=== PATIENT | male | born 1940 | race Caucasian/White ===

== ENCOUNTER 2016-04-27 06:14 | Emergency (ER) | payer OTHER ==
[~2016-04-27] VITALS: Ht 190.5 cm; Wt 81.6 kg
[~2016-04-27 06:14] MED LIST: AMOXICILLIN500 MG PO; ASPIRIN81 M1 PO; DARVOCET N 1001 TAB PO; DAYPRO600 M1 PO; LANTUS100 U/ML SC; LISINOPRIL2.5 MG PO; METOPROLOL SUCC25 M2 PO; MOTRIN800 MG PO; SIMVASTATIN80 MG PO; STARLIX60 M1 PO
[2016-04-27] MEDS ORDERED: KLOR-CON 1010 ME1 PO (06:29)
[2016-04-27] MEDS ORDERED: ALDACTONE25 M1 PO (06:32)
[2016-04-27] MEDS ORDERED: LASIX40 MG PO (06:33)
[2016-04-27] MEDS ORDERED: ENTRESTO 24 MG1 EACH PO (06:36)
[2016-04-27 06:45] LABS: BASO # 0.1 10*3/uL (0.0-0.1); EOS # 0.2 10*3/uL (0.0-0.4); EOS % 3.6 % (1.0-4.0); HEMATOCRIT 42.2 % (42.0-52.0); HEMOGLOBIN 14.2 g/dl (14.0-18.0); LYMPH # 1.2 10*3/uL (1.3-4.4); LYMPH % 24.3 % (27.0-41.0); MEAN CELL VOLUME 78.1 fl (80.0-94.0); MEAN CORPUSCULAR HGB 26.3 pg (27.0-31.0); MEAN CORPUSCULAR HGB CONC 33.6 g/dl (33.0-37.0); MEAN PLATELET VOLUME 9.7 fl (9.6-12.3); MONO # 0.4 10*3/uL (0.1-1.0); MONO % 7.5 % (3.0-9.0); NEUT % 63.4 % (47.0-73.0); PLATELET COUNT AUTOMATED 163 10*3/uL (130-400); RED CELL DISTRI WIDTH 13.3 % (0-14.5); WHITE BLOOD COUNT 4.8 10*3/uL (4.8-10.8)
[2016-04-27 07:07] LABS: BUN 17 mg/dl (7-24); CARBON DIOXIDE 34 mmol/L (21-32); CHLORIDE 101 mmol/L (98-107); EST GLOM FILT AFRICAN AMERICAN > 60 ml/min; GLUCOSE 189 mg/dL (65-99); POTASSIUM 3.2 mmol/L (3.5-5.1); SODIUM 141 mmol/L (136-145); TROPONIN I < 0.015 ng/ml (<0.5)
[2016-04-27] MEDS ORDERED: STARLIX60 M1 PO (07:38)
== END 2016-04-27 11:22 | disposition short-term general hospital (02) ==
LOC: ED 06:14
PROVIDERS: Emergency Medicine Emergency Medical Services
DX: G45.9 Transient cerebral ischemic attack, unspecified (principal); F17.200 Nicotine dependence, unspecified, uncomplicated; E11.9 Type 2 diabetes mellitus without complications; I25.2 Old myocardial infarction; Z98.890 Other specified postprocedural states; Z79.82 Long term (current) use of aspirin; Z85.828 Personal history of other malignant neoplasm of skin

== ENCOUNTER → 2016-10-16 | Outpatient (CLI) | payer OTHER ==
[~2016-10-16] MED LIST changes: +ALDACTONE25 M1 PO; +ENTRESTO 24 MG1 EACH PO; +KLOR-CON 1010 ME1 PO; +LASIX40 MG PO
== END | disposition home or self-care (01) ==
LOC: US 18:59
DX: R60.0 Localized edema (principal)

== ENCOUNTER → 2016-12-02 | Day surgery (SDC) | payer OTHER ==
[2016-12-01 09:23] VITALS: BP 132/70
[2016-12-01 10:51] LABS: ACT PARTIAL THROMBO TIME 26.9 SECONDS (20.8-31.5)
[~2016-12-02] VITALS: Ht 185.4 cm; Wt 82.6 kg
[~2016-12-02] MED LIST changes: +DOXYCYCLINE100 M3 PO; +LANTUS SOL100 UNIT/1 SC; -LANTUS100 U/ML SC; +PLAVIX75 M1 PO; +WALKER
--- NOTE | ~2016-12-02 | O ---
[place], [place] OPERATIVE NOTE NAME: ADEEL KNOTT UNIT #: [id number] ROOM: DOCTOR: ANISH COASIO DPM BIRTHDATE: [birth year] DOS: 12/02/2016 PREOPERATIVE DIAGNOSIS: Gangrene, first right toe. POSTOPERATIVE DIAGNOSIS: Gangrene, first right toe. PROCEDURE: Amputation of the right hallux at the first right MPJ. SURGEON: Anish Ocasio DPM CITY EDITOR: None. ANESTHESIA: LMAC. TOURNIQUET: None. SPECIMEN: Right hallux. PROCEDURE IN DETAILS: The patient was brought to the operating room, placed on the operating table in supine position. Anesthesia was administered per Anesthesia Department. Local infiltration of 10 mL of 0.5% Marcaine plain was utilized for local block at the first right MPJ. The right hallux was noted to be gangrenous and necrotic. There were no signs of purulent drainage or localized infection. A 15 blade was utilized to perform an incision proximal to the gangrenous tissue. The incision was deepened via sharp and blunt dissection avoiding neurovascular structures in the area and the right hallux was amputated and disarticulated at the first right MPJ. Bleeding was noted to be within normal limits and there were no signs of purulent drainage or foul odor. No signs of abscess. The area was flushed with sterile saline. The deep tissues were approximated with 4-0 Vicryl in simple interrupted stitch manner. The skin was reapproximated with 3-0 nylon in simple interrupted stitch manner. The incision site showed no signs of blanching or complication. The incision was well coapted after closure. Sterile compressive dressing consisting of Xeroform, 4 x 4s, Kerlix and Karl bandage was applied. The patient tolerated the procedure and anesthesia well and left the OR with vital signs stable and neurovascular status intact. The patient will continue with a walker and surgical shoe. Will continue antibiotics. The patient will be discharged from the medical facility after clearance by anesthesia and reappoint at the office for dressing change. [place], [place] OPERATIVE NOTE NAME: ADEEL KNOTT UNIT #: [id number] ROOM: DOCTOR: ANISH OCASIO DPM BIRTHDATE: [birth year] ANISH OCASIO DPM CM:BRYANORD:OPERATIVE NOTE [phone] ANISH OCASIO DPM 12/05/16 0830 interface
[2016-12-02 11:00] VITALS: BP 116/74
[2016-12-02 12:23] VITALS: BP 97/53
[2016-12-02 12:38] VITALS: BP 117/65
[2016-12-02 12:53] VITALS: BP 122/69
== END | disposition home or self-care (01) ==
LOC: SDC 12-01 09:30
PROVIDERS: Podiatrist
DX: E10.52 Type 1 diabetes mellitus with diabetic peripheral angiopathy with gangrene (principal); I10 Essential (primary) hypertension; I25.10 Atherosclerotic heart disease of native coronary artery without angina pectoris; I25.2 Old myocardial infarction; E78.5 Hyperlipidemia, unspecified; I73.9 Peripheral vascular disease, unspecified; Z79.4 Long term (current) use of insulin; Z98.890 Other specified postprocedural states; Z89.412 Acquired absence of left great toe; Z87.891 Personal history of nicotine dependence; Z79.899 Other long term (current) drug therapy; Z82.49 Family history of ischemic heart disease and other diseases of the circulatory system; Z91.018 Allergy to other foods; Z86.73 Personal history of transient ischemic attack (TIA), and cerebral infarction without residual deficits

== ENCOUNTER → 2017-05-13 | Day surgery (SDC) | payer OTHER ==
[~2017-05-13] VITALS: Ht 182.8 cm; Wt 82.6 kg
[~2017-05-13] MED LIST changes: +LEVEMIR100 UNIT/1 SC
--- NOTE | ~2017-05-13 | O ---
[place], [place] OPERATIVE NOTE [id number] UNIT #: [id number] ROOM: DOCTOR: SILVANA WERNER MD BIRTHDATE: [birth year] DOS: 05/13/2017 PREOPERATIVE DIAGNOSIS: Cataract, left eye. POSTOPERATIVE DIAGNOSIS: Cataract, left eye. OPERATION: Extracapsular cataract extraction by phacoemulsification with posterior chamber intraocular lens implantation, left eye. ANESTHESIA: Monitored standby. OPERATIVE FINDINGS AND PROCEDURE: 2% Xylocaine topical anesthetic gel was applied to the eye in the preop area. The patient was taken to the operating room and prepped and draped in the standard fashion for sterile intraocular surgery. A time out procedure was performed verifying correct patient, correct site and corrects lens with Thu Werner MD. The operating microscope was swung into position and the lid speculum was inserted. Using a Lynette paracentesis blade, a paracentesis was made through clear cornea. Viscoelastic was used to fill the anterior chamber. Using a metal keratome a 2.4 mm self-sealing clear corneal cataract incision was made temporally at the limbus. Using a pre-bent 25 gauge cystotome needle, a standard continuous curvilinear capsulorrhexis was performed. The anterior capsule was removed with forceps. The lens nucleus was hydrodissected and phacoemulsified in the posterior chamber. Cortical material was removed with the irrigation aspiration hand piece and the posterior capsule was then polished with a curet under irrigation. The posterior chamber and capsular bag were filled with viscoelastic. A posterior chamber intraocular lens manufactured by: Ar, Model #[id number], and 19.0 diopters in strength were then inserted into the posterior chamber and within the capsular bag using the lens cartridge and injector system. Viscoelastic was removed using the irrigation aspiration handpiece. The anterior chamber was filled with balanced salt solution through the paracentesis. Both the paracentesis site and cataract incisions were hydrated with BSS and verified to be water-tight and self-sealing. Cefuroxime 1 mg/0.1 mL was injected into the anterior chamber through the paracentesis site. The incision checked to be water-tight using a Weck-Floridalma sponge. The integrity of the cataract wound and ocular tension were checked. Lid speculum and drapes were removed. The patient was transferred from the operating room to the recovery room in satisfactory condition. [place], [place] OPERATIVE NOTE NAME: ADEEL KNOTT Billy UNIT #: [id number] ROOM: DOCTOR: SILVANA WERNER MD BIRTHDATE: [birth year] SILVANA WERNER MD CM:OPRECORD:OPERATIVE NOTE [phone] SILVANA WERNER MD 05/13/17 0903 interface
[2017-05-13 07:20] VITALS: BP 136/75
[2017-05-13 08:50] VITALS: BP 128/65
[2017-05-13 09:05] VITALS: BP 120/57
[2017-05-13 09:20] VITALS: BP 132/68
== END ==
LOC: SDC 05-08 08:45
DX: E11.36 Type 2 diabetes mellitus with diabetic cataract (principal); Z86.73 Personal history of transient ischemic attack (TIA), and cerebral infarction without residual deficits; E78.00 Pure hypercholesterolemia, unspecified; I10 Essential (primary) hypertension; I25.10 Atherosclerotic heart disease of native coronary artery without angina pectoris; I25.2 Old myocardial infarction; Z83.3 Family history of diabetes mellitus; Z87.891 Personal history of nicotine dependence

== ENCOUNTER → 2017-06-10 | Day surgery (SDC) | payer OTHER ==
[~2017-06-10] VITALS: Ht 182.8 cm; Wt 82.6 kg
--- NOTE | ~2017-06-10 | O ---
[place], [place] OPERATIVE NOTE [id number] UNIT #: [id number] ROOM: DOCTOR: SILVANA WERNER MD BIRTHDATE: [birth year] DOS: 06/10/2017 PREOPERATIVE DIAGNOSIS: Cataract, right eye. POSTOPERATIVE DIAGNOSIS: Cataract, right eye. OPERATION: Extracapsular cataract extraction by phacoemulsification with posterior chamber intraocular lens implantation, right eye. ANESTHESIA: Monitored standby. OPERATIVE FINDINGS AND PROCEDURE: 2% Xylocaine topical anesthetic gel was applied to the eye in the preop area. The patient was taken to the operating room and prepped and draped in the standard fashion for sterile intraocular surgery. A time out procedure was performed verifying correct patient, correct site and corrects lens with Thu Werner M.D. The operating microscope was swung into position and the lid speculum was inserted. Using a Lynette paracentesis blade, a paracentesis was made through clear cornea. Viscoelastic was used to fill the anterior chamber. Using a metal keratome a 2.4 mm self-sealing clear corneal cataract incision was made temporally at the limbus. Using a pre-bent 25 gauge cystotome needle, a standard continuous curvilinear capsulorrhexis was performed. The anterior capsule was removed with forceps. The lens nucleus was hydrodissected and phacoemulsified in the posterior chamber. Cortical material was removed with the irrigation aspiration hand piece and the posterior capsule was then polished with a curet under irrigation. The posterior chamber and capsular bag were filled with viscoelastic. A posterior chamber intraocular lens manufactured by: Ar, Model #[id number], and 19.5 diopters in strength were then inserted into the posterior chamber and within the capsular bag using the lens cartridge and injector system. Viscoelastic was removed using the irrigation aspiration handpiece. The anterior chamber was filled with balanced salt solution through the paracentesis. Both the paracentesis site and cataract incisions were hydrated with BSS and verified to be water-tight and self-sealing. Cefuroxime 1 mg/0.1 mL was injected into the anterior chamber through the paracentesis site. The incision checked to be water-tight using a Weck-Floridalma sponge. The integrity of the cataract wound and ocular tension were checked. Lid speculum and drapes were removed. The patient was transferred from the operating room to the recovery room in satisfactory condition. [place], [place] OPERATIVE NOTE NAME: ADEEL KNOTT Billy UNIT #: [id number] ROOM: DOCTOR: SILVANA WERNER MD BIRTHDATE: [birth year] SILVANA WERNER MD CM:OPRECORD:OPERATIVE NOTE [phone] SILVANA WERNER MD 06/10/17 0850 interface
[2017-06-10 06:40] VITALS: BP 111/64
[2017-06-10 07:56] VITALS: BP 118/66
[2017-06-10 08:09] VITALS: BP 127/64
[2017-06-10 08:22] VITALS: BP 119/68
== END | disposition home or self-care (01) ==
LOC: SDC 06-05 09:30
DX: E11.36 Type 2 diabetes mellitus with diabetic cataract (principal); H25.811 Combined forms of age-related cataract, right eye; I25.2 Old myocardial infarction; I25.10 Atherosclerotic heart disease of native coronary artery without angina pectoris; Z87.891 Personal history of nicotine dependence; Z98.890 Other specified postprocedural states; Z79.899 Other long term (current) drug therapy; Z86.73 Personal history of transient ischemic attack (TIA), and cerebral infarction without residual deficits; I10 Essential (primary) hypertension; Z83.3 Family history of diabetes mellitus

== ENCOUNTER → 2018-01-07 | Outpatient (CLI) | payer OTHER ==
[~2018-01-07] MED LIST changes: +APRESOLINE10 MG PO; +CEPHALEXIN500 M1 PO; +COZAAR50 M1 PO; +FUROSEMIDE40 MG PO; +KLOR-CON M2020 ME1 PO; +NATURE'S BLEND F1 MG PO; +SILVADENE,SSD C50 GM PO; +VITAMIN D5000 UNI1 PO
== END ==
LOC: WOUNDCARE 06:59
DX: T24.231A Burn of second degree of right lower leg, initial encounter (principal); T24.232A Burn of second degree of left lower leg, initial encounter; T31.0 Burns involving less than 10% of body surface; I25.2 Old myocardial infarction; E11.9 Type 2 diabetes mellitus without complications; Z86.73 Personal history of transient ischemic attack (TIA), and cerebral infarction without residual deficits; Z85.828 Personal history of other malignant neoplasm of skin; X08.8XXA Exposure to other specified smoke, fire and flames, initial encounter; Y93.89 Activity, other specified; Y92.89 Other specified places as the place of occurrence of the external cause; Y99.8 Other external cause status

== ENCOUNTER → 2018-01-13 | Outpatient (CLI) | payer OTHER | END | disposition home or self-care (01) | LOC: WOUNDCARE 01:31 | DX: T24.221D Burn of second degree of right knee, subsequent encounter (principal); T24.222D Burn of second degree of left knee, subsequent encounter; T31.0 Burns involving less than 10% of body surface; E11.9 Type 2 diabetes mellitus without complications; I25.2 Old myocardial infarction; Z85.828 Personal history of other malignant neoplasm of skin; Z86.73 Personal history of transient ischemic attack (TIA), and cerebral infarction without residual deficits; X08.8XXD Exposure to other specified smoke, fire and flames, subsequent encounter ==

== ENCOUNTER → 2018-01-20 | Outpatient (CLI) | payer OTHER | END | disposition home or self-care (01) | LOC: WOUNDCARE 04:26 | DX: T24.222D Burn of second degree of left knee, subsequent encounter (principal); T24.221D Burn of second degree of right knee, subsequent encounter; T31.0 Burns involving less than 10% of body surface; E11.9 Type 2 diabetes mellitus without complications; I25.2 Old myocardial infarction; Z85.828 Personal history of other malignant neoplasm of skin; Z86.73 Personal history of transient ischemic attack (TIA), and cerebral infarction without residual deficits; X08.8XXD Exposure to other specified smoke, fire and flames, subsequent encounter ==

== ENCOUNTER → 2018-01-27 | Outpatient (CLI) | payer OTHER | END | disposition home or self-care (01) | LOC: RESCLI 01:13 | DX: T24.221D Burn of second degree of right knee, subsequent encounter (principal); T24.222D Burn of second degree of left knee, subsequent encounter; T31.0 Burns involving less than 10% of body surface; E11.9 Type 2 diabetes mellitus without complications; I25.2 Old myocardial infarction; Z85.828 Personal history of other malignant neoplasm of skin; Z86.73 Personal history of transient ischemic attack (TIA), and cerebral infarction without residual deficits; X08.8XXD Exposure to other specified smoke, fire and flames, subsequent encounter ==

== ENCOUNTER → 2018-02-03 | Outpatient (CLI) | payer OTHER | END | disposition home or self-care (01) | LOC: WOUNDCARE 04:31 | DX: T24.221D Burn of second degree of right knee, subsequent encounter (principal); T24.222D Burn of second degree of left knee, subsequent encounter; T31.0 Burns involving less than 10% of body surface; E11.9 Type 2 diabetes mellitus without complications; I25.2 Old myocardial infarction; Z86.73 Personal history of transient ischemic attack (TIA), and cerebral infarction without residual deficits; Z85.828 Personal history of other malignant neoplasm of skin; X58.XXXD Exposure to other specified factors, subsequent encounter ==

== ENCOUNTER → 2018-02-10 | Outpatient (CLI) | payer OTHER | END | disposition home or self-care (01) | LOC: WOUNDCARE 01:49 | DX: T24.231D Burn of second degree of right lower leg, subsequent encounter (principal); T24.232D Burn of second degree of left lower leg, subsequent encounter; T31.0 Burns involving less than 10% of body surface; E11.9 Type 2 diabetes mellitus without complications; I25.2 Old myocardial infarction; Z85.820 Personal history of malignant melanoma of skin; X08.8XXD Exposure to other specified smoke, fire and flames, subsequent encounter ==

== ENCOUNTER → 2018-02-24 | Outpatient (CLI) | payer OTHER | END | disposition home or self-care (01) | LOC: WOUNDCARE 03:00 | DX: T24.231D Burn of second degree of right lower leg, subsequent encounter (principal); T24.232D Burn of second degree of left lower leg, subsequent encounter; T31.0 Burns involving less than 10% of body surface; E11.9 Type 2 diabetes mellitus without complications; I25.2 Old myocardial infarction; Z86.73 Personal history of transient ischemic attack (TIA), and cerebral infarction without residual deficits; Z85.828 Personal history of other malignant neoplasm of skin; X08.8XXD Exposure to other specified smoke, fire and flames, subsequent encounter ==

== ENCOUNTER → 2018-03-03 | Outpatient (CLI) | payer OTHER | END | disposition home or self-care (01) | LOC: WOUNDCARE 04:43 | DX: E11.622 Type 2 diabetes mellitus with other skin ulcer (principal); L97.212 Non-pressure chronic ulcer of right calf with fat layer exposed; L97.222 Non-pressure chronic ulcer of left calf with fat layer exposed; I25.2 Old myocardial infarction; Z85.828 Personal history of other malignant neoplasm of skin; Z86.73 Personal history of transient ischemic attack (TIA), and cerebral infarction without residual deficits ==

== ENCOUNTER → 2018-03-10 | Outpatient (CLI) | payer OTHER | END | disposition home or self-care (01) | LOC: WOUNDCARE 02:20 | DX: T24.231D Burn of second degree of right lower leg, subsequent encounter (principal); T24.232D Burn of second degree of left lower leg, subsequent encounter; T31.0 Burns involving less than 10% of body surface; E11.622 Type 2 diabetes mellitus with other skin ulcer; L97.212 Non-pressure chronic ulcer of right calf with fat layer exposed; L97.222 Non-pressure chronic ulcer of left calf with fat layer exposed; X08.8XXD Exposure to other specified smoke, fire and flames, subsequent encounter ==

== ENCOUNTER → 2018-03-17 | Outpatient (CLI) | payer OTHER | END | disposition home or self-care (01) | LOC: WOUNDCARE 02:29 | DX: T24.231D Burn of second degree of right lower leg, subsequent encounter (principal); T24.232D Burn of second degree of left lower leg, subsequent encounter; T31.0 Burns involving less than 10% of body surface; E11.622 Type 2 diabetes mellitus with other skin ulcer; L97.212 Non-pressure chronic ulcer of right calf with fat layer exposed; L97.222 Non-pressure chronic ulcer of left calf with fat layer exposed; I25.2 Old myocardial infarction; Z85.828 Personal history of other malignant neoplasm of skin; Z86.73 Personal history of transient ischemic attack (TIA), and cerebral infarction without residual deficits; X08.8XXD Exposure to other specified smoke, fire and flames, subsequent encounter ==

== ENCOUNTER → 2018-03-24 | Outpatient (CLI) | payer OTHER | END | disposition home or self-care (01) | LOC: WOUNDCARE 02:25 | DX: E11.622 Type 2 diabetes mellitus with other skin ulcer (principal); L97.212 Non-pressure chronic ulcer of right calf with fat layer exposed; L97.222 Non-pressure chronic ulcer of left calf with fat layer exposed; I25.2 Old myocardial infarction; Z86.73 Personal history of transient ischemic attack (TIA), and cerebral infarction without residual deficits; Z85.828 Personal history of other malignant neoplasm of skin ==

== ENCOUNTER → 2018-04-07 | Outpatient (CLI) | payer OTHER | END | disposition home or self-care (01) | LOC: WOUNDCARE 01:44 | DX: T24.231D Burn of second degree of right lower leg, subsequent encounter (principal); T24.232D Burn of second degree of left lower leg, subsequent encounter; T31.0 Burns involving less than 10% of body surface; E11.622 Type 2 diabetes mellitus with other skin ulcer; L97.212 Non-pressure chronic ulcer of right calf with fat layer exposed; L97.222 Non-pressure chronic ulcer of left calf with fat layer exposed; I25.2 Old myocardial infarction; Z86.73 Personal history of transient ischemic attack (TIA), and cerebral infarction without residual deficits; X08.8XXD Exposure to other specified smoke, fire and flames, subsequent encounter ==

== ENCOUNTER → 2018-04-14 | Outpatient (CLI) | payer OTHER | END | disposition home or self-care (01) | LOC: WOUNDCARE 05:02 | DX: T24.231D Burn of second degree of right lower leg, subsequent encounter (principal); T24.232D Burn of second degree of left lower leg, subsequent encounter; T31.0 Burns involving less than 10% of body surface; E11.622 Type 2 diabetes mellitus with other skin ulcer; L97.212 Non-pressure chronic ulcer of right calf with fat layer exposed; L97.222 Non-pressure chronic ulcer of left calf with fat layer exposed; I25.2 Old myocardial infarction; Z86.73 Personal history of transient ischemic attack (TIA), and cerebral infarction without residual deficits; X08.8XXD Exposure to other specified smoke, fire and flames, subsequent encounter ==

== ENCOUNTER → 2018-04-21 | Outpatient (CLI) | payer OTHER | END | disposition home or self-care (01) | LOC: WOUNDCARE 01:50 | DX: T24.231D Burn of second degree of right lower leg, subsequent encounter (principal); T24.232D Burn of second degree of left lower leg, subsequent encounter; T31.0 Burns involving less than 10% of body surface; E11.622 Type 2 diabetes mellitus with other skin ulcer; L97.212 Non-pressure chronic ulcer of right calf with fat layer exposed; L97.222 Non-pressure chronic ulcer of left calf with fat layer exposed; I25.2 Old myocardial infarction; Z86.73 Personal history of transient ischemic attack (TIA), and cerebral infarction without residual deficits; Z85.828 Personal history of other malignant neoplasm of skin; X08.8XXD Exposure to other specified smoke, fire and flames, subsequent encounter ==

== ENCOUNTER → 2018-04-28 | Outpatient (CLI) | payer OTHER | END | disposition home or self-care (01) | LOC: WOUNDCARE 03:00 | DX: T24.231D Burn of second degree of right lower leg, subsequent encounter (principal); T24.232D Burn of second degree of left lower leg, subsequent encounter; T31.0 Burns involving less than 10% of body surface; E11.622 Type 2 diabetes mellitus with other skin ulcer; L97.212 Non-pressure chronic ulcer of right calf with fat layer exposed; L97.222 Non-pressure chronic ulcer of left calf with fat layer exposed; I25.2 Old myocardial infarction; Z85.828 Personal history of other malignant neoplasm of skin; Z86.73 Personal history of transient ischemic attack (TIA), and cerebral infarction without residual deficits; X08.8XXD Exposure to other specified smoke, fire and flames, subsequent encounter ==

== ENCOUNTER → 2018-05-05 | Outpatient (CLI) | payer OTHER | END | disposition home or self-care (01) | LOC: WOUNDCARE 02:53 | DX: T24.231D Burn of second degree of right lower leg, subsequent encounter (principal); T24.232D Burn of second degree of left lower leg, subsequent encounter; T31.0 Burns involving less than 10% of body surface; E11.622 Type 2 diabetes mellitus with other skin ulcer; L97.222 Non-pressure chronic ulcer of left calf with fat layer exposed; L97.212 Non-pressure chronic ulcer of right calf with fat layer exposed; I25.2 Old myocardial infarction; Z86.73 Personal history of transient ischemic attack (TIA), and cerebral infarction without residual deficits; Z85.828 Personal history of other malignant neoplasm of skin; X08.8XXD Exposure to other specified smoke, fire and flames, subsequent encounter ==

== ENCOUNTER → 2018-05-12 | Outpatient (CLI) | payer OTHER ==
[~2018-05-12] MED LIST changes: +APRESOLINE25 MG PO; +BUMETANIDE2 MG PO; +FUROSEMIDE20 M1 PO; +ISORDIL10 M1 PO
== END | disposition home or self-care (01) ==
LOC: WOUNDCARE 00:43
DX: T24.022D Burn of unspecified degree of left knee, subsequent encounter (principal); T24.021D Burn of unspecified degree of right knee, subsequent encounter; S81.002D Unspecified open wound, left knee, subsequent encounter; T31.0 Burns involving less than 10% of body surface; E11.9 Type 2 diabetes mellitus without complications; I25.2 Old myocardial infarction; Z85.828 Personal history of other malignant neoplasm of skin; Z86.73 Personal history of transient ischemic attack (TIA), and cerebral infarction without residual deficits; Z72.0 Tobacco use; X19.XXXD Contact with other heat and hot substances, subsequent encounter

== ENCOUNTER → 2018-05-19 | Outpatient (CLI) | payer OTHER | END | disposition home or self-care (01) | LOC: WOUNDCARE 02:08 | DX: T24.231D Burn of second degree of right lower leg, subsequent encounter (principal); T31.0 Burns involving less than 10% of body surface; E11.622 Type 2 diabetes mellitus with other skin ulcer; L97.212 Non-pressure chronic ulcer of right calf with fat layer exposed; L97.222 Non-pressure chronic ulcer of left calf with fat layer exposed; I25.2 Old myocardial infarction; Z85.828 Personal history of other malignant neoplasm of skin; Z86.73 Personal history of transient ischemic attack (TIA), and cerebral infarction without residual deficits; X08.8XXD Exposure to other specified smoke, fire and flames, subsequent encounter ==

== ENCOUNTER → 2018-05-26 | Outpatient (CLI) | payer OTHER | END | disposition home or self-care (01) | LOC: WOUNDCARE 01:34 | DX: T24.231D Burn of second degree of right lower leg, subsequent encounter (principal); T31.0 Burns involving less than 10% of body surface; E11.622 Type 2 diabetes mellitus with other skin ulcer; L97.811 Non-pressure chronic ulcer of other part of right lower leg limited to breakdown of skin; L97.212 Non-pressure chronic ulcer of right calf with fat layer exposed; L97.222 Non-pressure chronic ulcer of left calf with fat layer exposed; I25.2 Old myocardial infarction; Z86.73 Personal history of transient ischemic attack (TIA), and cerebral infarction without residual deficits; Z85.828 Personal history of other malignant neoplasm of skin; X08.8XXD Exposure to other specified smoke, fire and flames, subsequent encounter ==

== ENCOUNTER → 2018-06-02 | Outpatient (CLI) | payer OTHER | END | disposition home or self-care (01) | LOC: WOUNDCARE 01:13 | DX: T24.221D Burn of second degree of right knee, subsequent encounter (principal); T31.0 Burns involving less than 10% of body surface; E11.622 Type 2 diabetes mellitus with other skin ulcer; L97.818 Non-pressure chronic ulcer of other part of right lower leg with other specified severity; I25.2 Old myocardial infarction; Z85.828 Personal history of other malignant neoplasm of skin; Z86.73 Personal history of transient ischemic attack (TIA), and cerebral infarction without residual deficits; Z72.0 Tobacco use; X16.XXXD Contact with hot heating appliances, radiators and pipes, subsequent encounter ==

== ENCOUNTER → 2018-06-09 | Outpatient (CLI) | payer OTHER | END | disposition home or self-care (01) | LOC: WOUNDCARE 02:59 | DX: T24.221D Burn of second degree of right knee, subsequent encounter (principal); T31.0 Burns involving less than 10% of body surface; E11.622 Type 2 diabetes mellitus with other skin ulcer; L97.212 Non-pressure chronic ulcer of right calf with fat layer exposed; L97.222 Non-pressure chronic ulcer of left calf with fat layer exposed; I25.2 Old myocardial infarction; Z85.828 Personal history of other malignant neoplasm of skin; Z86.73 Personal history of transient ischemic attack (TIA), and cerebral infarction without residual deficits; X08.8XXD Exposure to other specified smoke, fire and flames, subsequent encounter ==

== ENCOUNTER → 2018-06-30 | Outpatient (CLI) | payer OTHER | END | disposition home or self-care (01) | LOC: WOUNDCARE 01:22 | DX: T24.231D Burn of second degree of right lower leg, subsequent encounter (principal); T31.0 Burns involving less than 10% of body surface; E11.622 Type 2 diabetes mellitus with other skin ulcer; L97.212 Non-pressure chronic ulcer of right calf with fat layer exposed; I25.2 Old myocardial infarction; Z85.828 Personal history of other malignant neoplasm of skin; Z86.73 Personal history of transient ischemic attack (TIA), and cerebral infarction without residual deficits; X08.8XXD Exposure to other specified smoke, fire and flames, subsequent encounter ==

== ENCOUNTER → 2018-07-14 | Outpatient (CLI) | payer OTHER | END | disposition home or self-care (01) | LOC: WOUNDCARE 02:44 | DX: T24.221D Burn of second degree of right knee, subsequent encounter (principal); T31.0 Burns involving less than 10% of body surface; E11.622 Type 2 diabetes mellitus with other skin ulcer; L97.212 Non-pressure chronic ulcer of right calf with fat layer exposed; L97.222 Non-pressure chronic ulcer of left calf with fat layer exposed; I25.2 Old myocardial infarction; Z86.73 Personal history of transient ischemic attack (TIA), and cerebral infarction without residual deficits; Z85.828 Personal history of other malignant neoplasm of skin; Z72.0 Tobacco use; X08.8XXD Exposure to other specified smoke, fire and flames, subsequent encounter ==

== ENCOUNTER → 2018-07-19 | Outpatient (CLI) | payer OTHER | END | disposition home or self-care (01) | LOC: RESCLI 12:52 | DX: I13.0 Hypertensive heart and chronic kidney disease with heart failure and stage 1 through stage 4 chronic kidney disease, or unspecified chronic kidney disease (principal); E11.22 Type 2 diabetes mellitus with diabetic chronic kidney disease; E11.52 Type 2 diabetes mellitus with diabetic peripheral angiopathy with gangrene; N18.9 Chronic kidney disease, unspecified; I50.9 Heart failure, unspecified; I25.10 Atherosclerotic heart disease of native coronary artery without angina pectoris; E55.9 Vitamin D deficiency, unspecified; I25.2 Old myocardial infarction; E78.5 Hyperlipidemia, unspecified; Z71.89 Other specified counseling; Z79.899 Other long term (current) drug therapy; Z87.891 Personal history of nicotine dependence; Z91.018 Allergy to other foods ==

== ENCOUNTER → 2018-07-21 | Outpatient (CLI) | payer OTHER | END | disposition home or self-care (01) | LOC: WOUNDCARE 03:05 | DX: T24.231D Burn of second degree of right lower leg, subsequent encounter (principal); T31.0 Burns involving less than 10% of body surface; E11.622 Type 2 diabetes mellitus with other skin ulcer; L97.222 Non-pressure chronic ulcer of left calf with fat layer exposed; L97.212 Non-pressure chronic ulcer of right calf with fat layer exposed; I25.2 Old myocardial infarction; Z85.828 Personal history of other malignant neoplasm of skin; Z86.73 Personal history of transient ischemic attack (TIA), and cerebral infarction without residual deficits; X08.8XXD Exposure to other specified smoke, fire and flames, subsequent encounter ==

== ENCOUNTER → 2018-07-28 | Outpatient (CLI) | payer OTHER | END | disposition home or self-care (01) | LOC: WOUNDCARE 01:36 | DX: T24.231D Burn of second degree of right lower leg, subsequent encounter (principal); T31.0 Burns involving less than 10% of body surface; E11.622 Type 2 diabetes mellitus with other skin ulcer; L97.212 Non-pressure chronic ulcer of right calf with fat layer exposed; L97.222 Non-pressure chronic ulcer of left calf with fat layer exposed; I25.2 Old myocardial infarction; Z86.73 Personal history of transient ischemic attack (TIA), and cerebral infarction without residual deficits; Z85.828 Personal history of other malignant neoplasm of skin; X08.8XXD Exposure to other specified smoke, fire and flames, subsequent encounter ==

== ENCOUNTER → 2018-08-04 | Outpatient (CLI) | payer OTHER | END | disposition home or self-care (01) | LOC: WOUNDCARE 01:24 → EDSTATUS 15:46 | DX: E11.622 Type 2 diabetes mellitus with other skin ulcer (principal); L97.812 Non-pressure chronic ulcer of other part of right lower leg with fat layer exposed; L97.212 Non-pressure chronic ulcer of right calf with fat layer exposed; L97.222 Non-pressure chronic ulcer of left calf with fat layer exposed; E11.621 Type 2 diabetes mellitus with foot ulcer; L97.512 Non-pressure chronic ulcer of other part of right foot with fat layer exposed; L84 Corns and callosities; E11.65 Type 2 diabetes mellitus with hyperglycemia; I25.2 Old myocardial infarction; Z86.73 Personal history of transient ischemic attack (TIA), and cerebral infarction without residual deficits; Z85.828 Personal history of other malignant neoplasm of skin ==

== ENCOUNTER → 2018-08-11 | Outpatient (CLI) | payer OTHER | END | disposition home or self-care (01) | LOC: WOUNDCARE 01:19 | DX: E11.622 Type 2 diabetes mellitus with other skin ulcer (principal); L97.212 Non-pressure chronic ulcer of right calf with fat layer exposed; L97.222 Non-pressure chronic ulcer of left calf with fat layer exposed; L97.821 Non-pressure chronic ulcer of other part of left lower leg limited to breakdown of skin; E11.621 Type 2 diabetes mellitus with foot ulcer; L97.512 Non-pressure chronic ulcer of other part of right foot with fat layer exposed; I25.2 Old myocardial infarction; Z86.73 Personal history of transient ischemic attack (TIA), and cerebral infarction without residual deficits; Z85.828 Personal history of other malignant neoplasm of skin ==

== ENCOUNTER → 2018-08-25 | Outpatient (CLI) | payer OTHER | END | disposition home or self-care (01) | LOC: WOUNDCARE 01:20 | DX: E11.621 Type 2 diabetes mellitus with foot ulcer (principal); L97.512 Non-pressure chronic ulcer of other part of right foot with fat layer exposed; E11.622 Type 2 diabetes mellitus with other skin ulcer; L97.812 Non-pressure chronic ulcer of other part of right lower leg with fat layer exposed; L97.212 Non-pressure chronic ulcer of right calf with fat layer exposed; L97.222 Non-pressure chronic ulcer of left calf with fat layer exposed; I25.2 Old myocardial infarction; Z86.73 Personal history of transient ischemic attack (TIA), and cerebral infarction without residual deficits; Z85.828 Personal history of other malignant neoplasm of skin; Z72.0 Tobacco use ==

== ENCOUNTER → 2018-09-08 | Outpatient (CLI) | payer OTHER | END | disposition home or self-care (01) | LOC: WOUNDCARE 01:58 | DX: E11.622 Type 2 diabetes mellitus with other skin ulcer (principal); L97.212 Non-pressure chronic ulcer of right calf with fat layer exposed; L97.222 Non-pressure chronic ulcer of left calf with fat layer exposed; E11.621 Type 2 diabetes mellitus with foot ulcer; L97.412 Non-pressure chronic ulcer of right heel and midfoot with fat layer exposed; E11.65 Type 2 diabetes mellitus with hyperglycemia; I25.2 Old myocardial infarction; Z86.73 Personal history of transient ischemic attack (TIA), and cerebral infarction without residual deficits; Z85.828 Personal history of other malignant neoplasm of skin ==

== ENCOUNTER → 2018-09-15 | Outpatient (CLI) | payer OTHER | END | disposition home or self-care (01) | LOC: WOUNDCARE 00:42 | DX: E11.621 Type 2 diabetes mellitus with foot ulcer (principal); L97.412 Non-pressure chronic ulcer of right heel and midfoot with fat layer exposed; E11.622 Type 2 diabetes mellitus with other skin ulcer; L97.812 Non-pressure chronic ulcer of other part of right lower leg with fat layer exposed; L97.212 Non-pressure chronic ulcer of right calf with fat layer exposed; L97.222 Non-pressure chronic ulcer of left calf with fat layer exposed; E11.65 Type 2 diabetes mellitus with hyperglycemia; I25.2 Old myocardial infarction; Z85.828 Personal history of other malignant neoplasm of skin; Z86.73 Personal history of transient ischemic attack (TIA), and cerebral infarction without residual deficits ==

== ENCOUNTER 2018-09-19 13:28 | Inpatient (IN) | payer OTHER ==
[~2018-09-19] VITALS: Ht 185.4 cm; Wt 83.5 kg
--- NOTE | ~2018-09-19 | EKG ---
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1940 Requested By: MAXIMO CARRERO Order Number: [id number] Reading MD: Sepideh Bales Measurements Intervals [place] Rate: 83 P: 46 TN: 224 QRS: 92 QRSD: 126 T: -87 QT: 419 QTc: 493 Interpretive Statements Sinus rhythm Ventricular premature complex Borderline prolonged TN interval Nonspecific intraventricular conduction delay Nonspecific T abnormalities, lateral leads Baseline wander in lead(s) V6 Compared to ECG 07/07/2018 16:18:39 Ventricular premature complex(es) now present T-wave abnormality now present Electronically Signed On 09-23-2018 4:15:54 PDT by Sepideh Bales CM:EKGRPT:ELECTROCARDIOGRAM REPORT [id number] MAXIMO FAIRCHILD DRAFT REPORT MAXIMO CARRERO DO
--- NOTE | ~2018-09-19 | PR ---
[place], [place] PROGRESS NOTE NAME: ADEEL KNOTT UNIT #: [id number] ROOM: 512 DOCTOR: SAMINA RICO MD BIRTHDATE: [birth year] DOS: 09/22/2018 CARDIOLOGY PROGRESS NOTE REASON FOR VISIT: Cardiomyopathy and elevated troponin. HISTORY OF PRESENT ILLNESS: The patient denies any chest pain or short of breath. No fever and chills. No PND or orthopnea. No nausea, vomiting, diarrhea. Complaining of some right-sided chest wall pain from his recent fall. REVIEW OF SYSTEMS: Review of 8 systems negative except as mentioned above. RHYTHM STRIPS: The patient in sinus rhythm. PHYSICAL EXAMINATION: VITAL SIGNS: Blood pressure 92/50, pulse 94, respiratory rate is 18. GENERAL: Alert, comfortable, in no acute distress. HEAD AND NECK: Pupils are round and equal, no jaundice. Neck is supple, no distended neck veins, no carotid bruit. CHEST: Symmetrical, the patient with mild tenderness in the right chest wall secondary to fall. LUNGS: Clear to auscultation bilaterally. HEART: Regular rhythm, no S3. Grade 1-2/6 systolic murmur. ABDOMEN: Benign, nontender. Bowel sounds normal. EXTREMITIES: Showed trace edema. The patient had a dressing to the feet and also has toe amputations in the right foot. DIAGNOSTIC IMPRESSION: 1. Elevated troponins, has history of recent aig-LA-dfftdyjkl myocardial infarction. 2. Gbzkg-ig-fylafhe systolic heart failure. 3. Chronic kidney disease. 4. Coronary artery disease. 5. Peripheral vascular disease. RECOMMENDATIONS: 1. Continue current medications. 2. We will discontinue heparin. 3. Lexiscan stress test was scheduled for today to assess for any underlying ischemia. 4. I would recommend conservative medical therapy since the patient is a very high risk for any invasive or interventional cardiac procedures. 5. The patient also declined invasive testing in the past. 6. Tentative discharge in the next 24-48 hours. 7. No family at bedside at the time of examination. [place], [place] PROGRESS NOTE NAME: ADEEL KNOTT UNIT #: [id number] ROOM: 512 DOCTOR: SAMINA RICO MD BIRTHDATE: [birth year] SAMINA RICO MD CM:PNTRANS [phone] SAMINA RICO MD 09/23/18 1022 interface
--- NOTE | ~2018-09-19 | EKG ---
[place], [place] ELECTROCARDIOGRAM REPORT NAME: ADEEL NKOTT UNIT #: [id number] ROOM: 512 DOCTOR: FABI DRAFT REPORT BIRTHDATE: [birth year] [facility] Test Date: 2018-09-19 Test Time: 21:49:39 Pat Name: ADEEL KNOTT Department: Room: 512 Gender: M Manager Neonatal: : 1940 Requested By: MAXIMO CARRERO Order Number: [id number] Reading MD: Sepideh Bales Measurements Intervals [place] Rate: 88 P: AK: QRS: 95 QRSD: 129 T: 186 QT: 431 QTc: 522 Interpretive Statements Accelerated junctional rhythm Nonspecific intraventricular conduction delay Anteroseptal infarct, old Nonspecific T abnormalities, lateral leads Compared to ECG 07/07/2018 16:18:39 Accelerated junctional rhythm now present Myocardial infarct finding now present T-wave abnormality now present Sinus rhythm no longer present Electronically Signed On 09-23-2018 4:18:33 PDT by Sepideh Bales CM:EKGRPT:ELECTROCARDIOGRAM REPORT [id number] MAXIMO FAIRCHILD DRAFT REPORT MAXIMO CARRERO DO
--- NOTE | ~2018-09-19 | EKG ---
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1940 Requested By: DEE GEORGE Order Number: [id number] Reading MD: Sepideh Bales Measurements Intervals [place] Rate: 83 P: 43 [place]: 186 QRS: 78 QRSD: 121 T: 161 QT: 407 QTc: 479 Interpretive Statements Sinus rhythm LVH with secondary repolarization abnormality Anterior Q waves, possibly due to LVH Compared to ECG 07/07/2018 16:18:39 Left ventricular hypertrophy now present Early repolarization now present Q waves now present Intraventricular conduction delay no longer present Electronically Signed On 09-23-2018 4:15:12 PDT by Sepideh Bales CM:EKGRPT:ELECTROCARDIOGRAM REPORT [id number] DEE DUNLAP DRAFT REPORT DEE GEORGE MD
--- NOTE | ~2018-09-19 | PR ---
[place], [place] PROGRESS NOTE NAME: ADEEL KNOTT [facility] #: [id number] UNIT #: [id number] ROOM: 512 DOCTOR: SAMINA RICO MD BIRTHDATE: [birth year] DOS: 09/21/2018 CARDIOLOGY PROGRESS NOTE REASON FOR VISIT: Elevated troponin and cardiomyopathy. SUBJECTIVE: The patient denies any chest pain or shortness of breath. His blood pressure is still low. No PND, no orthopnea. No nausea or vomiting. Complained of some right-sided chest wall pain and shoulder pain from his fall. No nausea, vomiting, diarrhea. No fever and chills. No cough or hemoptysis. REVIEW OF SYSTEMS: Review of 10 systems negative except as mentioned above. PHYSICAL EXAMINATION: VITAL SIGNS: Blood pressure 88/60, pulse 65, respirations 18. Rhythm strips, the patient was in sinus rhythm. GENERAL: The patient is alert, oriented, in no acute distress. HEENT: Pupils are round and equal. No jaundice. Tongue was moist and pharynx clear. NECK: Supple, no distended neck veins. CHEST: Symmetrical, nontender. LUNGS: Few scattered rhonchi, but fair air entry bilaterally. HEART: Regular rhythm, no S3. Grade 1/6 systolic murmur. ABDOMEN: Benign, nontender. Bowel sounds normal. EXTREMITIES: Showed 1+ edema. The patient's right foot was in dressing. Distal pulses are fair. SKIN: Warm and dry. No cyanosis, no clubbing. RECTAL: Deferred. GENITOURINARY: Deferred. NEUROLOGIC: The patient is alert with no focal neurologic deficit. MEDICAL LABS AND MEDICATIONS: Reviewed. IMPRESSION: 1. Elevated troponin suggestive of recent non-ST elevation myocardial infarction. The patient was chest pain free. 2. Severe left ventricular dysfunction. 3. Acute kidney injury on top of chronic kidney disease. 4. Mild hypertension. 5. History of coronary artery disease. 6. Peripheral vascular disease with status post PCI in 2017. 7. History of cerebrovascular accident. RECOMMENDATIONS: 1. The patient denies chest pain. Blood pressure is still low. 2. Long discussion with the patient regarding further testing, as far I believe he will be extremely high risk for any cardiac interventional procedures or cardiac surgery. 3. Due to his significant elevation of troponin, I would recommend Lexiscan stress test to see if any underlying ischemia. [place], [place] PROGRESS NOTE NAME: ADEEL KNOTT UNIT #: [id number] ROOM: 512 DOCTOR: JACKY PEDERSEN,SAMINA BIRTHDATE: [birth year] 4. Continue current medication. 5. The patient would be high risk for especially cardiac catheterization due to his significant renal failure. In the past, the patient declined any invasive cardiac testing. 6. The patient will be transferred to telemetry bed tomorrow. 7. The case was briefly discussed with Dr. Phelps, collar trimmer. SAMINA RICO MD CM:CAROLYN [phone] SAMINA RICO MD 09/22/18 0513 interface
--- NOTE | ~2018-09-19 | ST ---
[place], [place] EXERCISE STRESS TEST REPORT NAME: ADEEL KNOTT [facility] #: [id number] UNIT #: [id number] ROOM: [facility] DOCTOR: JACKY PEDERSEN,SAMINA BIRTHDATE: [birth year] DOS: 09/22/2018 LEXISCAN STRESS TEST REASON FOR TEST: The patient with NSTEMI and cardiomyopathy. PHYSICAL EXAMINATION: NECK: Supple. LUNGS: Clear anteriorly. HEART: Regular rhythm. PROTOCOL: Lexiscan protocol. Maximum heart rate 78, peak blood pressure 92/50. SYMPTOMS: The patient is chest pain-free. EKG: Resting EKG showed sinus rhythm. Stress EKG showed no ischemia, no arrhythmias. CONCLUSION: Clinically, the patient is chest pain-free. EKG nonischemic. POST-STRESS COMPLICATIONS: None. The patient received a total of 0.4 mg Lexiscan. SAMINA RICO MD CM:STRESS:EXERCISE STRESS TEST REPORT [id number] SAMINA RICO MD
--- NOTE | ~2018-09-19 | CON ---
[place], [place] REPORT OF CONSULTATION NAME: ADEEL KNOTT UNIT #: [id number] ROOM: [facility] DOCTOR: SAMINA RICO MD BIRTHDATE: [birth year] DOS: CARDIOLOGY CONSULTATION This note is an addendum to the note done by Dr. Gutierrez. I personally examined and assessed the patient. His medical history and allergies were reviewed. IMAGING STUDIES: Reviewed. I did my independent examination of the patient. Dr. Gutierrez's examination and assessment reflects my work. Case was discussed with the resident physician, Dr. Gutierrez. HISTORY OF PRESENT ILLNESS: The patient was brought to the Emergency Room for some inability to ambulate due to pain, has a deep pain. He also apparently fell a couple of days ago. He denies any chest pain, shortness of breath, no palpitations, and no syncope. PERTINENT CARDIAC EXAM: HEART: Regular rhythm, no S3. Grade 1/6 systolic murmur. LUNGS: Clear to auscultation. HEART: Regular rhythm, no S3. ABDOMEN: Benign, nontender. EXTREMITIES: Showed trace edema. Distal pulses palpable. DIAGNOSTIC TESTS: EKG showed no acute ischemic changes. IMPRESSION: 1. Elevated troponin, possibly recent non-ST elevation myocardial infarction. 2. History of severe cardiomyopathy, possibly nonischemic, EF 15-20%. 3. Acute kidney injury on top of chronic kidney disease, mild hypotension. 4. Multiple joint pains, supposedly from the fall. RECOMMENDATIONS: 1. He denies any chest pain. 2. Continue heparin and aspirin. 3. Once the blood pressure is stable, resume his current home cardiac medications. 4. I will review his previous records and see why the patient did not have an ICD since his EF is low since 2016. 5. Consider a stress test on Thursday. 6. I would recommend conservative medical therapy due to his multiple comorbidities. 7. No family at bedside at the time of my examination. 8. Continue to monitor heart rate, blood pressures, and renal function. [place], [place] REPORT OF CONSULTATION NAME: ADEEL KNOTT UNIT #: [id number] ROOM: [facility] DOCTOR: SAMINA RICO MD BIRTHDATE: [birth year] SAMINA RICO MD CM:CONSTR:REPORT OF CONSULTATION 1919 09/21/18 0304 interface
--- NOTE | ~2018-09-19 | EKG ---
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1940 Requested By: DEE GEORGE Order Number: [id number] Reading MD: Sepideh Bales Measurements Intervals [place] Rate: 84 P: 18 [place]: 156 QRS: 90 QRSD: 133 T: 207 QT: 424 QTc: 502 Interpretive Statements Sinus rhythm LVH with secondary repolarization abnormality Anterior Q waves, possibly due to LVH Prolonged QT interval Compared to ECG 07/07/2018 16:18:39 Left ventricular hypertrophy now present Early repolarization now present Q waves now present Prolonged QT interval now present Intraventricular conduction delay no longer present Electronically Signed On 09-23-2018 4:15:42 PDT by Sepideh Bales CM:EKGRPT:ELECTROCARDIOGRAM REPORT [id number] DEE GEORGE MD EPIPHANY DRAFT REPORT DEE GEORGE MD
--- NOTE | ~2018-09-19 | PR ---
[place], [place] PROGRESS NOTE NAME: ADEEL KNOTT [facility] #: [id number] UNIT #: [id number] ROOM: 512 DOCTOR: SAMINA RICO MD BIRTHDATE: [birth year] DOS: 09/23/2018 REASON FOR VISIT: Cardiomyopathy and pulmonary hypertension. SUBJECTIVE: The patient denies any chest pain, shortness of breath. He wanted to go home. No PND or orthopnea. No fever and chills. No nausea or vomiting. He had a stress test yesterday that showed mostly fixed defects. REVIEW OF SYSTEMS: Review of 8 systems negative except as mentioned above. PHYSICAL EXAMINATION: VITAL SIGNS: Blood pressure 100/58, pulse 70, respiratory rate was 18. Rhythm strips, the patient was in sinus rhythm. GENERAL: Alert, comfortable, in no acute distress. HEENT: Pupils are round and equal, no jaundice. NECK: Supple, no distended neck veins, no carotid bruit. CHEST: Symmetrical, nontender. LUNGS: Few scattered rhonchi. HEART: Regular rhythm, no S3, grade 2/6 systolic murmur. ABDOMEN: Benign. Bowel sounds normal. EXTREMITIES: The patient had dressing to the feet. He had 1+ edema. The patient had toes amputated on the right leg. Distal pulses are fair. SKIN: Warm and dry. NEUROLOGIC: Alert. No focal neurologic deficit. RECTAL: Deferred. GENITOURINARY: Deferred. REVIEW OF DIAGNOSTIC TESTS: His labs and medications reviewed. The stress test showed fixed inferolateral defect with EF 25-30%. IMPRESSION: 1. Severe left ventricular dysfunction with ejection fraction 25-30% by stress test, ejection fraction 15-20% by echo, July 2018. 2. Pulmonary hypertension. 3. Acute renal failure on top of chronic kidney disease. 4. Peripheral vascular disease. 5. History of cerebrovascular accident. 6. Diastolic dysfunction. 7. Mild hypotension. 8. Elevated troponins with history of recent non-ST elevation myocardial infarction. 9. Recent fall with some musculoskeletal pains. 10. Anemia. RECOMMENDATIONS: 1. Continue current cardiac medications. 2. The patient can be discharged home from the cardiac standpoint and follow up with [facility] in 1-2 weeks. 3. No further cardiac testing. 4. Stress test results were discussed with the patient. [place], [place] PROGRESS NOTE NAME: ADEEL KNOTT UNIT #: [id number] ROOM: 512 DOCTOR: JACKY PEDERSEN,SAMINA BIRTHDATE: [birth year] 5. I believe he will be high risk for any invasive or interventional cardiovascular surgical procedures and in the past, he declined any invasive testing. SAMINA RICO MD CM:CAROLYN [phone] SAMINA RICO MD 09/24/18 0155 interface
--- NOTE | ~2018-09-19 | EKG ---
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1940 Requested By: MAXIMO CARRERO Order Number: [id number] Reading MD: Sepideh Bales Measurements Intervals [place] Rate: 81 P: 59 [place]: 173 QRS: 86 QRSD: 134 T: QT: 427 QTc: 496 Interpretive Statements Sinus rhythm LVH with secondary repolarization abnormality Anterior Q waves, possibly due to LVH Compared to ECG 07/07/2018 16:18:39 Left ventricular hypertrophy now present Early repolarization now present Q waves now present Intraventricular conduction delay no longer present Electronically Signed On 09-23-2018 4:19:01 PDT by Sepideh Bales CM:EKGRPT:ELECTROCARDIOGRAM REPORT [id number] 0419 MAXIMO FAIRCHILD DRAFT REPORT MAXIMO CARRERO DO
[2018-09-19 13:28] VITALS: BP 105/65
[~2018-09-19 13:28] MED LIST changes: -BUMETANIDE2 MG PO
[2018-09-19 14:20] LABS: HEMATOCRIT 33.6 % (42.0-52.0); HEMOGLOBIN 10.8 g/dl (14.0-18.0); MEAN CELL VOLUME 86.8 fl (80.0-94.0); MEAN CORPUSCULAR HGB 27.9 pg (27.0-31.0); MEAN CORPUSCULAR HGB CONC 32.1 g/dl (33.0-37.0); MEAN PLATELET VOLUME 10.8 fl (9.6-12.3); PLATELET COUNT AUTOMATED 111 10*3/uL (130-400); RED BLOOD COUNT 3.87 10*6/uL (4.50-5.90); RED CELL DISTRI WIDTH 14.9 % (0-14.5); WHITE BLOOD COUNT 11.3 10*3/uL (4.8-10.8)
[2018-09-19 14:36] LABS: ALBUMIN 2.8 gm/dl (3.1-4.5); CREATININE 4.24 mg/dL (0.70-1.30); POTASSIUM 3.6 mmol/L (3.5-5.1); TOTAL PROTEIN 6.6 gm/dL (6.4-8.2)
[2018-09-19 14:43] LABS: BURR CELLS FEW; PLATELET SUFFICIENCY NORMAL (NORMAL); TOTAL CELLS COUNTED 100 #CELLS; TROPONIN I 3.36 ng/ml (<0.045)
[2018-09-19 14:55] VITALS: BP 102/66
[2018-09-19 15:04] LABS: ACT PARTIAL THROMBO TIME 40.8 SECONDS (20.0-32.1); INTERNATIONAL NORM RATIO 1.4 (2.0-3.5)
[2018-09-19 17:15] VITALS: BP 117/62
[2018-09-19] MEDS ORDERED: METOPROLOL SUCC25 M2 PO (17:25)
[2018-09-19] MEDS ORDERED: BUMETANIDE2 MG PO (17:26)
[2018-09-19] MEDS ORDERED: ISORDIL10 M1 PO (17:28)
[2018-09-19 18:00] VITALS: BP 104/73
[2018-09-19 19:54] LABS: BILIRUBIN NEGATIVE (NEGATIVE); BLOOD 2+ (NEGATIVE); CLARITY CLEAR (CLEAR); COLOR YELLOW (YELLOW); GLUCOSE NEGATIVE (NEGATIVE); KETONE NEGATIVE (NEGATIVE); LEUKO ESTERASE NEGATIVE (NEGATIVE); NITRITE NEGATIVE (NEGATIVE); PH 5.5 (5.0-9.0)
[2018-09-19 20:00] VITALS: BP 111/65
[2018-09-19 20:07] LABS: BACTERIA 2+; RBC 16-20 rbc/hpf (0-2)
[2018-09-19 20:11] LABS: URINE CHLORIDE, RANDOM < 10 mmol/L
[2018-09-19 20:35] LABS: CREATININE 4.14 mg/dL (0.70-1.30)
[2018-09-20] VITALS: BP 100/63
[2018-09-20 04:00] VITALS: BP 91/54
[2018-09-20 06:54] LABS: HEMATOCRIT 31.8 % (42.0-52.0); HEMOGLOBIN 10.4 g/dl (14.0-18.0); MEAN CELL VOLUME 84.8 fl (80.0-94.0); MEAN CORPUSCULAR HGB 27.7 pg (27.0-31.0); MEAN CORPUSCULAR HGB CONC 32.7 g/dl (33.0-37.0); MEAN PLATELET VOLUME 10.6 fl (9.6-12.3); PLATELET COUNT AUTOMATED 117 10*3/uL (130-400); RED BLOOD COUNT 3.75 10*6/uL (4.50-5.90); WHITE BLOOD COUNT 11.7 10*3/uL (4.8-10.8)
[2018-09-20 07:22] LABS: POTASSIUM 3.4 mmol/L (3.5-5.1)
[2018-09-20 07:23] LABS: PLATELET SUFFICIENCY LOW (NORMAL); TOTAL CELLS COUNTED 100 #CELLS
[2018-09-20 07:24] LABS: BURR CELLS MODERATE; SCHISTOCYTES FEW
[2018-09-20 07:31] LABS: ALBUMIN 2.5 gm/dl (3.1-4.5); CREATININE 3.94 mg/dL (0.70-1.30); FREE T4 1.43 ng/dl (0.76-1.46); PHOSPHOROUS 5.5 mg/dL (2.5-4.9); THYROID STIM HORMONE (HS) 1.15 uIU/ml (0.358-4.75); TOTAL PROTEIN 5.8 gm/dL (6.4-8.2)
[2018-09-20 07:36] LABS: INTERNATIONAL NORM RATIO 1.5 (2.0-3.5)
[2018-09-20 07:45] LABS: ACT PARTIAL THROMBO TIME 76.9 SECONDS (20.0-32.1)
[2018-09-20 08:00] VITALS: BP 94/61
[2018-09-20 12:00] VITALS: BP 86/54
[2018-09-20 16:00] VITALS: BP 81/51
[2018-09-20 20:00] VITALS: BP 91/55
[2018-09-21] VITALS: BP 96/48
[2018-09-21 04:00] VITALS: BP 87/54
[2018-09-21 05:13] LABS: HEMATOCRIT 31.3 % (42.0-52.0); MEAN CELL VOLUME 85.1 fl (80.0-94.0); MEAN CORPUSCULAR HGB 27.2 pg (27.0-31.0); MEAN CORPUSCULAR HGB CONC 31.9 g/dl (33.0-37.0); MEAN PLATELET VOLUME 11.2 fl (9.6-12.3); PLATELET COUNT AUTOMATED 102 10*3/uL (130-400); RED BLOOD COUNT 3.68 10*6/uL (4.50-5.90); RED CELL DISTRI WIDTH 15.1 % (0-14.5); WHITE BLOOD COUNT 10.9 10*3/uL (4.8-10.8)
[2018-09-21 05:44] LABS: ALBUMIN 2.4 gm/dl (3.1-4.5); CREATININE 4.31 mg/dL (0.70-1.30); TOTAL PROTEIN 5.9 gm/dL (6.4-8.2)
[2018-09-21 06:21] LABS: BURR CELLS MANY; PLATELET SUFFICIENCY LOW (NORMAL); TOTAL CELLS COUNTED 100 #CELLS
[2018-09-21 08:00] VITALS: BP 87/53
[2018-09-21 12:00] VITALS: BP 88/60
[2018-09-21 16:00] VITALS: BP 98/61
[2018-09-21 20:00] VITALS: BP 97/61
[2018-09-22] VITALS: BP 96/60
[2018-09-22 08:11] VITALS: BP 98/50
[2018-09-22 14:20] VITALS: BP 103/58
[2018-09-22 16:00] VITALS: BP 99/59
[2018-09-22 20:00] VITALS: BP 101/48
[2018-09-23] VITALS (7 sets, daily range): BP systolic 78–105; BP diastolic 42–58
[2018-09-23 07:02] LABS: HEMATOCRIT 33.1 % (42.0-52.0); HEMOGLOBIN 10.5 g/dl (14.0-18.0); MEAN CELL VOLUME 85.3 fl (80.0-94.0); MEAN CORPUSCULAR HGB 27.1 pg (27.0-31.0); MEAN CORPUSCULAR HGB CONC 31.7 g/dl (33.0-37.0); MEAN PLATELET VOLUME 11.6 fl (9.6-12.3); PLATELET COUNT AUTOMATED 116 10*3/uL (130-400); RED BLOOD COUNT 3.88 10*6/uL (4.50-5.90); RED CELL DISTRI WIDTH 15.3 % (0-14.5); WHITE BLOOD COUNT 13.4 10*3/uL (4.8-10.8)
[2018-09-23 07:08] LABS: CREATININE 4.61 mg/dL (0.70-1.30)
[2018-09-23 07:52] LABS: PLATELET SUFFICIENCY LOW (NORMAL); TOTAL CELLS COUNTED 100 #CELLS; TOXIC GRANULATION SLIGHT
[2018-09-23 07:53] LABS: BURR CELLS MANY; OVALOCYTES FEW
[2018-09-24] VITALS: BP 87/54
[2018-09-24 04:00] VITALS: BP 92/46
[2018-09-24 06:32] LABS: HEMATOCRIT 32.5 % (42.0-52.0); HEMOGLOBIN 10.6 g/dl (14.0-18.0); MEAN CELL VOLUME 82.9 fl (80.0-94.0); MEAN CORPUSCULAR HGB CONC 32.6 g/dl (33.0-37.0); MEAN PLATELET VOLUME 10.9 fl (9.6-12.3); PLATELET COUNT AUTOMATED 115 10*3/uL (130-400); RED BLOOD COUNT 3.92 10*6/uL (4.50-5.90); RED CELL DISTRI WIDTH 15.4 % (0-14.5); WHITE BLOOD COUNT 15.4 10*3/uL (4.8-10.8)
[2018-09-24 06:41] LABS: POTASSIUM 4.1 mmol/L (3.5-5.1)
[2018-09-24 06:46] LABS: CREATININE 4.84 mg/dL (0.70-1.30); TOTAL PROTEIN 5.3 gm/dL (6.4-8.2)
[2018-09-24 07:34] LABS: BURR CELLS MODERATE; PLATELET SUFFICIENCY LOW (NORMAL); POLYCHROMASIA SLIGHT; TOTAL CELLS COUNTED 100 #CELLS; TOXIC GRANULATION SLIGHT
[2018-09-24 08:00] VITALS: BP 100/52
[2018-09-24 12:00] VITALS: BP 115/54
[2018-09-24 16:00] VITALS: BP 110/51
[2018-09-24 20:00] VITALS: BP 102/50
[2018-09-25] VITALS (11 sets, daily range): BP systolic 70–102; BP diastolic 38–56
[2018-09-25 06:12] LABS: HEMOGLOBIN 10.8 g/dl (14.0-18.0); MEAN CELL VOLUME 83.1 fl (80.0-94.0); MEAN CORPUSCULAR HGB 27.2 pg (27.0-31.0); MEAN CORPUSCULAR HGB CONC 32.7 g/dl (33.0-37.0); PLATELET COUNT AUTOMATED 97 10*3/uL (130-400); RED BLOOD COUNT 3.97 10*6/uL (4.50-5.90); RED CELL DISTRI WIDTH 15.5 % (0-14.5); WHITE BLOOD COUNT 16.9 10*3/uL (4.8-10.8)
[2018-09-25 06:27] LABS: CREATININE 5.09 mg/dL (0.70-1.30); POTASSIUM 4.3 mmol/L (3.5-5.1)
[2018-09-25 07:26] LABS: PLATELET SUFFICIENCY LOW (NORMAL); TOTAL CELLS COUNTED 100 #CELLS
[2018-09-25 07:27] LABS: BURR CELLS MODERATE; POLYCHROMASIA SLIGHT; TOXIC GRANULATION SLIGHT; VACUOLATION OF NEUTROPHILS SLIGHT
== END 2018-09-26 | disposition hospice, home (50) | DRG 280 ==
LOC: ED 13:28 → EDHOLD 16:28 → ICCU 16:28 → 4E 16:50 → ICCU 18:05 → 5E 09-21 18:52 → ICCU 09-25 16:42
PROVIDERS: Emergency Medicine; Internal Medicine; Internal Medicine Nephrology; Student in an Organized Health Care Education/Training Program; ADMIT Internal Medicine
PROC: 3E073KZ Introduction of Other Diagnostic Substance into Coronary Artery, Percutaneous Approach (ICD-10-PCS; principal; 2018-09-22)
PROC: 4A02XM4 Measurement of Cardiac Total Activity, External Approach (ICD-10-PCS; principal; 2018-09-22)
DX: I21.4 Non-ST elevation (NSTEMI) myocardial infarction (principal); N17.0 Acute kidney failure with tubular necrosis; E43 Unspecified severe protein-calorie malnutrition; I50.23 Acute on chronic systolic (congestive) heart failure; R57.0 Cardiogenic shock; J96.01 Acute respiratory failure with hypoxia; E87.2 Acidosis; E87.1 Hypo-osmolality and hyponatremia; I13.0 Hypertensive heart and chronic kidney disease with heart failure and stage 1 through stage 4 chronic kidney disease, or unspecified chronic kidney disease; I42.9 Cardiomyopathy, unspecified; T79.6XXA Traumatic ischemia of muscle, initial encounter; D72.825 Bandemia; N18.3 Chronic kidney disease, stage 3 (moderate); I25.10 Atherosclerotic heart disease of native coronary artery without angina pectoris; E87.6 Hypokalemia; E83.39 Other disorders of phosphorus metabolism; E11.22 Type 2 diabetes mellitus with diabetic chronic kidney disease; E11.65 Type 2 diabetes mellitus with hyperglycemia; E83.41 Hypermagnesemia; I95.9 Hypotension, unspecified; F17.220 Nicotine dependence, chewing tobacco, uncomplicated; D64.9 Anemia, unspecified; Z66 Do not resuscitate; Z51.5 Encounter for palliative care; I27.20 Pulmonary hypertension, unspecified; E11.51 Type 2 diabetes mellitus with diabetic peripheral angiopathy without gangrene; D69.6 Thrombocytopenia, unspecified; S40.812A Abrasion of left upper arm, initial encounter; S40.811A Abrasion of right upper arm, initial encounter; S80.812A Abrasion, left lower leg, initial encounter; S80.811A Abrasion, right lower leg, initial encounter; E80.6 Other disorders of bilirubin metabolism; R07.81 Pleurodynia; M25.562 Pain in left knee; R26.2 Difficulty in walking, not elsewhere classified; W01.0XXA Fall on same level from slipping, tripping and stumbling without subsequent striking against object, initial encounter; Y93.89 Activity, other specified; Y99.8 Other external cause status; Y92.89 Other specified places as the place of occurrence of the external cause; I25.2 Old myocardial infarction; Z86.73 Personal history of transient ischemic attack (TIA), and cerebral infarction without residual deficits; Z85.828 Personal history of other malignant neoplasm of skin; Z84.1 Family history of disorders of kidney and ureter; Z83.3 Family history of diabetes mellitus; Z82.3 Family history of stroke; Z89.421 Acquired absence of other right toe(s); Z79.899 Other long term (current) drug therapy; Z79.02 Long term (current) use of antithrombotics/antiplatelets

== ENCOUNTER 2018-09-26 00:01 | Inpatient (IN) | payer OTHER ==
[~2018-09-26] VITALS: Ht 182.9 cm; Wt 83.5 kg
[~2018-09-26 00:01] MED LIST changes: +BUMETANIDE2 MG PO
[2018-09-26 00:20] VITALS: BP 54/36
== END 2018-09-26 04:30 | disposition expired ==
LOC: ICCU 00:01
PROVIDERS: ADMIT Emergency Medicine
DX: I21.4 Non-ST elevation (NSTEMI) myocardial infarction (principal); N17.0 Acute kidney failure with tubular necrosis; I50.23 Acute on chronic systolic (congestive) heart failure; J96.01 Acute respiratory failure with hypoxia; E43 Unspecified severe protein-calorie malnutrition; E87.2 Acidosis; E87.1 Hypo-osmolality and hyponatremia; I13.0 Hypertensive heart and chronic kidney disease with heart failure and stage 1 through stage 4 chronic kidney disease, or unspecified chronic kidney disease; T79.6XXA Traumatic ischemia of muscle, initial encounter; D72.825 Bandemia; D64.9 Anemia, unspecified; D69.6 Thrombocytopenia, unspecified; E80.6 Other disorders of bilirubin metabolism; R07.81 Pleurodynia; M25.562 Pain in left knee; I95.9 Hypotension, unspecified; R26.2 Difficulty in walking, not elsewhere classified; R57.0 Cardiogenic shock; E11.65 Type 2 diabetes mellitus with hyperglycemia; E11.22 Type 2 diabetes mellitus with diabetic chronic kidney disease; Z66 Do not resuscitate; Z51.5 Encounter for palliative care; N18.3 Chronic kidney disease, stage 3 (moderate); I25.10 Atherosclerotic heart disease of native coronary artery without angina pectoris; E87.6 Hypokalemia; E83.39 Other disorders of phosphorus metabolism; E83.41 Hypermagnesemia; W01.0XXA Fall on same level from slipping, tripping and stumbling without subsequent striking against object, initial encounter; Z86.73 Personal history of transient ischemic attack (TIA), and cerebral infarction without residual deficits; I25.2 Old myocardial infarction; Z84.1 Family history of disorders of kidney and ureter; Z89.421 Acquired absence of other right toe(s); Y93.89 Activity, other specified; Y92.89 Other specified places as the place of occurrence of the external cause; Y99.8 Other external cause status; Z85.828 Personal history of other malignant neoplasm of skin; Z83.3 Family history of diabetes mellitus; Z82.49 Family history of ischemic heart disease and other diseases of the circulatory system; Z84.89 Family history of other specified conditions; Z79.899 Other long term (current) drug therapy; Z79.02 Long term (current) use of antithrombotics/antiplatelets; Z68.22 Body mass index [BMI] 22.0-22.9, adult